=== PATIENT | male | born 1960 | race Caucasian/White ===

== ENCOUNTER 2017-12-17 12:24 | Inpatient (IN) | payer OTHER ==
[~2017-12-17] VITALS: Ht 172.7 cm; Wt 115.2 kg
[~2017-12-17 12:24] MED LIST: ASPIRIN EC81 M1; ATORVASTATIN CA10 M1 PO; FENOFIBRATE160 M1 PO; HUMALOG MI100 UNIT/3 SC; JENTADUETO 2.51 EAC2 PO; LISINOPRIL10 M1 PO
[2017-12-17] MEDS ORDERED: PRAVASTATIN SOD20 M2 PO (12:45)
[2017-12-17] MEDS ORDERED: LOVAZA1 G1 PO (12:46)
[2017-12-17] MEDS ORDERED: FAMOTIDINE20 M1 PO (12:47)
[2017-12-17] MEDS ORDERED: ASPIRIN81 M4 PO (12:47)
[2017-12-17] MEDS ORDERED: HUMULIN R500 UNIT/2 SC (12:48)
--- NOTE | 2017-12-17 14:47 | ED GENERAL ADULT ---
History of Present Illness General Chief Complaint: General Adult Stated Complaint: ABNORMAL LABS Source: patient Exam Limitations: no limitations Vital Signs & Intake/Output Vital Signs & Intake/Output Vital Signs Date Time Temp Pulse Resp B/P B/P Pulse O2 O2 Flow FiO2 Mean Ox Delivery Rate 12/17 1603 97.7 73 18 153/72 100 Room Air 12/17 1538 99 Room Air 12/17 1236 97.9 96 16 142/84 99 Room Air Allergies Coded Allergies: dapagliflozin (From [facility]) (YEAST INFECTION PER PT 12/17/17) sweet potato (DIFF BREATH PER PT 12/17/17) Reconcile Medications Aspirin (Aspirin*) 81 MG TAB.CHEW 1 TAB PO DAILY HEART HEALTH (Reported) Famotidine 20 MG TABLET 1 TAB PO BID GI (Reported) Insulin NPL/Insulin Lispro (Humalog Mix 75-25 Kwikpen) 100 UNIT/ML (75-25) INSULN.PEN 55 UNITS SC TID DIABETES (Reported) Insulin Regular, Human (Humulin R U-500 Kwikpen) 500/ML (3) INSULN.PEN 55 UNITS SC TID DIABETES (Reported) Lisinopril 10 MG TABLET 1 TAB PO DAILY DIRECTED (Reported) [place]-3 Acid Ethyl Esters (Lovaza) 1 GRAM CAPSULE 2 CAP PO BID SUPPLEMENT ( Reported) Pravastatin Sodium 20 MG TABLET 1 TAB PO DAILY CHOLESTEROL (Reported) Triage Note: PT SENT IN BY PCP FOR INCREASED BLOOD SUGAR. PT STATES THAT HE WENT TO DOCTOR TODAY FOR FOLLOW UP FOR HIS LIVER CIRRHOSIS. PT STATES THAT THE LAST 2 NIGHTS THAT HE HAS NO SLEPT WELL. PT BLOOD SUGAR IN TRAIGE IN >500 Triage Nurses Notes Reviewed? yes Onset: Abrupt HPI: 57 yo male with a history of hypertension, hyperlipidemia, cirrhosis, and poorly controlled type 2 diabetes mellitus presents today for hyperglycemia. Patient was previously at his 3 month f/u with his PCP when he was told to come to the ED for elevated sugar level. He states his blood sugar has been running high for a few years now is last A1C was recorded at 13.7 and he uses Humulin R insulin 55 units three times a day. He was taken off pills for diabetes upon diagnosis of cirrhosis. He admits to having 3 eggs, toast, grits, slive of ham, frosted flakes for breakfast. He had a chicken sandwich for dinner and also drank 3 iced teas. He denied any nausea, vomiting, diarrhea, headache, chest pain, abdominal pain, sob, weakness, or cough. Past History Travel History Traveled to [place] past 21 day No Medical History Any Pertinent Medical History? 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 No Review of Systems Review of Systems Constitutional: Reports: no symptoms, see HPI. EENTM: Reports: no symptoms, see HPI. Respiratory: Reports: no symptoms, see HPI. Cardiovascular: Reports: no symptoms, see HPI. GI: Reports: no symptoms, see HPI. Genitourinary: Reports: no symptoms, see HPI. Musculoskeletal: Reports: no symptoms, see HPI. Skin: Reports: no symptoms, see HPI. Neurological/Psychological: Reports: no symptoms, see HPI. Hematologic/Endocrine: Reports: no symptoms, see HPI. Immunologic/Allergic: Reports: no symptoms, see HPI. All Other Systems: Reviewed and Negative Physical Exam Physical Exam General Appearance: well developed/nourished, no apparent distress, alert, awake Head: atraumatic, normal appearance Eyes: Bilateral: normal appearance, PERRL, EOMI. Ears, Nose, Throat: normal pharynx, normal ENT inspection, hearing grossly normal Neck: normal inspection, supple, full range of motion Respiratory: normal breath sounds, chest non-tender, no respiratory distress Cardiovascular: regular rate/rhythm Gastrointestinal: normal bowel sounds, soft, non-tender, no organomegaly Rectal: normal exam, normal rectal tone Back: normal inspection, normal range of motion Extremities: normal inspection, normal capillary refill, normal range of motion, no edema Neurologic/Psych: no motor/sensory deficits, awake, alert Skin: intact, normal color Core Measures ACS in differential dx? No CVA/TIA Diagnosis: No Sepsis Present: No Sepsis Focused Exam Completed? No Progress Differential Diagnoses I considered the following diagnoses in my evaluation of the patient: DKA, hyperosmolar diabetic coma, dehydration Plan of Care: Orders Procedure Date/time Status Consistent Carbohydrate 2 12/18 B Active LACTIC ACID 12/17 1635 Active Add-on Test (ER Only) 12/17 1600 Active EKG 12/17 1545 Active SERUM OSMOLALITY 12/17 1425 Complete PARTIAL THROMBOPLASTIN TIME 12/17 1359 Complete PROTHROMBIN TIME 12/17 1359 Complete EKG 12/17 1357 Active AMMONIA LEVEL 12/17 1352 Complete MIXED VENOUS BLOOD GAS (GEN) 12/17 1335 Active URINALYSIS 12/17 1335 Active LACTIC ACID 12/17 1335 Complete COMPREHENSIVE METABOLIC PANEL 12/17 1335 Complete CBC WITHOUT DIFFERENTIAL 12/17 1335 Complete ACETONE 12/17 1335 Complete Laboratory Tests 12/17/17 1545: Troponin I Cancelled 12/17/17 1425: Ammonia 23 12/17/17 1425: Bicarbonate Actual 24, Mixed VBG pH 7.40, Mixed VBG pCO2 40 L, Mixed VBG O2 Saturation 36, Carboxyhemoglobin 0.8 L, O2 Concentration % 21, O2 Delivery Method RA, Anion Gap 10, Estimated GFR 48 L, BUN/Creatinine Ratio 25.3 H, Glucose 681 *H, Serum Osmolality 328 H, Lactic Acid 1.5, Calcium 9.4, Total Bilirubin 0.4, AST 83 H, ALT 128 H, Alkaline Phosphatase 161 H, Total Protein 7.1, Albumin 3.4 L, Globulin 3.7, Albumin/Globulin Ratio 0.9 L, PT 11.3, INR 1.04, APTT 28, CBC w Diff NO MAN DIFF REQ, RBC 4.83, MCV 86.4, MCH 29.2, MCHC 33.8, RDW 13.4, MPV 9.4, Gran % 57.2, Lymphocytes % 34.2, Monocytes % 6.7, Eosinophils % 1.5, Basophils % 0.4, Absolute Granulocytes 3.6, Absolute Lymphocytes 2.1, Absolute Monocytes 0.4, Absolute Eosinophils 0.1, Absolute Basophils 0, Phlebotomy Draw Site L AC, Acetone Level NEGATIVE Initial ED EKG: none Departure Departure Disposition: STILL A PATIENT Condition: Stable Clinical Impression Primary Impression: Hyperglycemia Secondary Impressions: Acute kidney injury Referrals: Darvin Galloway MD (PCP/Family) Departure Forms: Customer Survey General Discharge Information Admission Note Spoke With: Damon Cee MD Documentation of Exam: Documentation of any treatments & extenuating circumstances including Concerns Regarding Discharge (functional status, medication knowledge or non-compliance, living conditions, etc.) that warrant an admission rather than observation: Endocrine consultation. IV fluids. Insulin. Repeat labs. Not medically safe for discharge. Critical Care Note Critical Care Note Critical Care Time: 30-74 min (35)
[2017-12-17 14:55] LABS: ABSOLUTE BASOPHIL COUNT 0 /CUMM (0.0-0.2); ABSOLUTE EOSINOPHIL COUNT 0.1 /CUMM (0.0-0.7); ABSOLUTE GRANULOCYTE CT 3.6 /CUMM (1.4-6.5); ABSOLUTE LYMPH COUNT 2.1 /CUMM (1.2-3.4); ABSOLUTE MONOCYTE COUNT 0.4 /CUMM (0.10-0.60); BASOPHIL % 0.4 % (0.0-2.0); EOSINOPHIL % 1.5 % (0-5); GRANULOCYTE % 57.2 % (42.2-75.2); HEMATOCRIT 41.8 % (42-52); MEAN CORPUSCULAR HGB 29.2 PG (27.0-31.0); MEAN CORPUSCULAR HGB CONC 33.8 G/DL (33.0-37.0); MEAN CORPUSCULAR VOLUME 86.4 FL (80.0-94.0); MEAN PLATELET VOLUME 9.4 FL (7.4-10.4); PLATELET COUNT 143 /CUMM (130-400); RBC DISTRIBUTION WIDTH 13.4 % (11.5-14.5); RED BLOOD CELL CT 4.83 /CUMM (4.70-6.10); WHITE BLOOD CELL COUNT 6.3 /CUMM (4.8-10.8)
[2017-12-17 15:05] LABS: PT 11.3 SEC (9.4-12.5); PTT 28 SEC (25-37)
--- NOTE | 2017-12-17 19:54 | History & Physical ---
Jose Luis Zaragoza 12/17/171953: General Information and HPI MD Statement: I have seen and personally examined LILIYA CANO and documented this H&P. The patient is a 57 year old M who presented with a patient stated chief complaint of elevated blood sugars. History of Present Illness: 57 year old male with PMH Diabetes, hypertension, hyperlipidemia and CARY who presented to ED with an elevated glucose of 681. Patient was at his usual follow up with his transplant physician at [place] for his diagnosed CARY. Upon arriving home, patient was called by the office that he had a blood sugar of 521 and was told to come to the ED. Patient states that he takes Humulin R insulin 55 units TID at 12PM, 7PM and 4AM. He last took his insulin at 12PM yesterday and was unable to take it thereafter due to a change in his work schedule. 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 Patient was therefore unable to fully follow his regimen. After his work day, he had consumed a large meal prior to visiting his transplant physician and prior to coming to the ED. He follows regularaly with an [facility] who he last saw last month. Last recorded A1C was 13.7. Patient has had a hypoglycemic event last year but recently his sugars have been running higher at the levels of 280s. He attributes this to his new work schedule and stress at home of taking care of his father who has dementia. ROS: + Constiopation. Negative for abdominal pain, diarrhea, nausea, vomiting, urinary symptoms, fevers, chills, chest pain or sob. Smoking: Denies Alcohol: Denies Family hx: non-contributory Last Discharge date 12/12/15: for dark urine/abdominal pain. Elevated transaminases at that time. Found tohave thrombocytopenia where he received 2 units of platelets for a count of 10,000 and started on dexamethasone. No acute intracranial hemorrhage or mass effect. -His extensive lab works were positive for anti-smooth muscle antibody, CMV IgG, IgM, viral load. Hepatits and HIV were negative at that time. PCP: Darvin Perez Allergies/Medications Allergies: Coded Allergies: dapagliflozin (From [facility]) (YEAST INFECTION PER PT 12/17/17) sweet potato (DIFF BREATH PER PT 12/17/17) Home Med list Aspirin (Aspirin*) 81 MG TAB.CHEW 1 TAB PO DAILY HEART HEALTH (Reported) Famotidine 20 MG TABLET 1 TAB PO BID GI (Reported) Insulin NPL/Insulin Lispro (Humalog Mix 75-25 Kwikpen) 100 UNIT/ML (75-25) INSULN.PEN 55 UNITS SC TID DIABETES (Reported) Insulin Regular, Human (Humulin R U-500 Kwikpen) 500/ML (3) INSULN.PEN 55 UNITS SC TID DIABETES (Reported) Lisinopril 10 MG TABLET 1 TAB PO DAILY DIRECTED (Reported) [place]-3 Acid Ethyl Esters (Lovaza) 1 GRAM CAPSULE 2 CAP PO BID SUPPLEMENT ( Reported) Pravastatin Sodium 20 MG TABLET 1 TAB PO DAILY CHOLESTEROL (Reported) Past History Travel History Traveled to [place] past 21 day No Medical History Neurological: NONE EENT: NONE Cardiovascular: hypertension, hyperlipidemia Respiratory: NONE Gastrointestinal: NONE Hepatic: cirrhosis Renal: NONE Musculoskeletal: NONE Psychiatric: NONE Endocrine: diabetes Blood Disorders: NONE Cancer(s): NONE 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 Exam & Diagnostic Data Last 24 Hrs of Vital Signs/I&O Vital Signs Date Time Temp Pulse Resp B/P B/P Pulse O2 O2 Flow FiO2 Mean Ox Delivery Rate 12/17 2258 98.6 75 18 128/80 95 Room Air 12/17 2000 98.1 76 18 145/70 97 Room Air 12/17 1802 79 18 148/76 98 Room Air 12/17 1603 97.7 73 18 153/72 100 Room Air 12/17 1538 99 Room Air 12/17 1236 97.9 96 16 142/84 99 Room Air Intake & Output 12/18 0800 12/18 0000 12/17 1600 Intake Total 0 1000 Output Total 0 Balance 0 1000 Intake, IV 1000 Intake, Oral 0 Output, Urine 0 Patient 254 lb 254 lb Weight Weight Reported by Patient Reported by Patient Measurement Method Physical Exam General Appearance Alert, Oriented X3, Cooperative, No Acute Distress Skin No Rashes, No Breakdown Skin Temp/Moisture Exam: Warm/Dry HEENT Mucous Membr. moist/pink Neck Supple Cardiovascular Normal S1, Normal S2 Lungs Clear to Auscultation, Normal Air Movement Abdomen Normal Bowel Sounds, Soft, No Tenderness Neurological Normal Speech, Strength at 5/5 X4 Ext, Normal Tone Extremities No Cyanosis, No Edema Last 24 Hrs of Labs/Anthony: Laboratory Tests 12/17/17 2104: Urine Color YEL, Urine Clarity CLEAR, Urine pH 6.0, Ur Specific [place] 1.010, Urine Protein TRACE H, Urine Ketones NEG, Urine Nitrite NEG, Urine Bilirubin NEG, Urine Urobilinogen 0.2, Ur Leukocyte Esterase NEG, Ur Microscopic SEDIMENT EXAMINED, Urine RBC 1-3, Urine WBC RARE, Ur Epithelial Cells RARE, Urine Mucus RARE, Urine Hemoglobin SMALL H, Urine Glucose >=1000 H 12/17/17 1635: Lactic Acid Cancelled 12/17/17 1545: Troponin I Cancelled 12/17/17 1425: Ammonia 23 12/17/17 1425: Bicarbonate Actual 24, Mixed VBG pH 7.40, Mixed VBG pCO2 40 L, Mixed VBG O2 Saturation 36, Carboxyhemoglobin 0.8 L, O2 Concentration % 21, O2 Delivery Method RA, Anion Gap 10, Estimated GFR 48 L, BUN/Creatinine Ratio 25.3 H, Glucose 681 *H, Serum Osmolality 328 H, Lactic Acid 1.5, Calcium 9.4, Total Bilirubin 0.4, AST 83 H, ALT 128 H, Alkaline Phosphatase 161 H, Total Protein 7.1, Albumin 3.4 L, Globulin 3.7, Albumin/Globulin Ratio 0.9 L, PT 11.3, INR 1.04, APTT 28, CBC w Diff NO MAN DIFF REQ, RBC 4.83, MCV 86.4, MCH 29.2, MCHC 33.8, RDW 13.4, MPV 9.4, Gran % 57.2, Lymphocytes % 34.2, Monocytes % 6.7, Eosinophils % 1.5, Basophils % 0.4, Absolute Granulocytes 3.6, Absolute Lymphocytes 2.1, Absolute Monocytes 0.4, Absolute Eosinophils 0.1, Absolute Basophils 0, Phlebotomy Draw Site L AC, Acetone Level NEGATIVE Assessment/Plan Assessment: 57 year old male with PMH Diabetes, hypertension, hyperlipidemia and CARY who presented to ED with an elevated glucose of 681. Was sent by transplant physician after follow up visit demonstarted elevated blood sugars. Last recorded A1C was 13.7. Patient uses Humulin R insulin 55 units TID. Dicontinued oral regimen due to diagnsois of cirrhosis on previous admission 2015 where patient had lab work posuitive for anti-smooth muscle antibodiy, CMV, IgM, Viral Load. EMERGENCY DEPARTMENT: 10 units Insulin Novolin x1; 2 Bolus NS Vitals: 97.9, 96, 16, 142/84, 99%RA Labs: 6.3, 14.1 hgb, 41.8 hct, 86.4 MC, 143 Plt Chemistry: Na 129, K 5.0, Cl 93, CO2 26, BUN 38/ Cr 1.5 GLUCOSE: 681, Acetone negative Lactic acid 1.5 AST 83, ALT 128, ALK Phos 161; Albumin 3.4 (L), Total protein 7.1, Ammonia 23 EKG: SR 80 QTC 447, non specific T wave changes unchanged from previous EKG PROBLEM LIST: 1. Hyperglycemia normal gap secondary to history of Diabetes 2. History of CARY Transaminitis 3. H/O HTN/HLD PLAN: * Continue home regimen of Insulin NovoLin 55 Units at 4AM, 12PM, 7PM * IV fluids at 150/hr with added K * Nutrition consult in AM * Continue home medications: Aspirin 81, Provastatin 20, FAmotidine 20, Fish oil Code Status: Full Code DVT PPx: Heparin SC Diet: CC1 As Ranked By This Provider Problem List: 1. Transaminitis 2. Hyperglycemia 3. Acute kidney injury Core Measures/Misc (12/09) Acute Coronary Syndrome ACS Diagnosis: No Congestive Heart Failure Congestive Heart Failure Diagnosis No Cerebrovascular Accident CVA/TIA Diagnosis: No VTE (View Protocol) VTE Risk Factors Age>40 No Mechanical VTE Prophylaxis d/t N/A MechProphylax Ordered No VTE Pharm Prophylaxis d/t NA PharmProphylax ordered Sepsis (View protocol) Sepsis Present: No If YES complete Sepsis Event Note If YES complete Sepsis Event Note Yonatan Bo MD 12/17/17 2016: Core Measures/Misc (12/09) Sepsis (View protocol) If YES complete Sepsis Event Note If YES complete Sepsis Event Note Resident Review Statement Resident Statement: examined this patient, discussed with grad intern, agreed with grad intern, reviewed EMR data (avail), amended to note Other Findings: Patient is a 57-year-old male with past medical history of hypertension, hyperlipidemia, uncontrolled diabetes, with previous admission in 2016 found to have positive for anti-smooth muscle antibody, CMV IgG, IgM, 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 Patient reports that he went to this liver transplant physician for his routine 3 month follow up. At the visit he had blood drawn and after evaluation was sent home. Reports that 30 minutes after arriving he was called and asked to come into the ED as his serum blood sugar level was 521. Patient states prior to seeing his doctor he had eaten breakfast. Reports he came to the ED and prior to coming he ate again. In the ED his fingerstick was >500. Serum glucose level was 681. Patient states he has not been taking his insulin regularly due to work related shift changes. Patient reports he is currently on Humilin R 55 units TID (takes it at noon, 7PM and 4AM). Is not currently on any other insulin regimen and his oral hypolgycemic agents were stopped after his diagnosis of cirrhosis. Patient reports that he followed up with his body shop supervisor 1 month prior at which point his hemoglobin A1c was 13.7 and his insulin was adjusted to its current regimen. Patient reports his blood sugar level has been running high for the past 2 years. Patient states he has not been eating well due to his shift change at work. Patient reports last hypoglyemic episodes with BG to the 40s 1 year prior. No recent episodes. Denies nausea, vomitting, chest pain, palpitations, SOB, fever/chills, dysuria, hematuria. Denies polyuria. Reports that he does a drink a lot of water however states this was because he was told to by his physician. Patient denies any numbness or tingling. Follow up with his pcp for diabetic foot exam which was reported as normal. Denies any visual changes, has not seen an filler blender yet. Reports occasional constipation for which he takes prune juice as needed. 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 Takes care of his father who has dementia Medications: aspirin, famotidine, humilin R, lisinopril, pravastatin, omega On admission: Vitals: MAXIMUM TEMPERATURE 98.1, heart rate 70s to 90s, respiration rate 18, blood pressure 145/70, saturating at 97-100% on room air Physical exam findings as exam Labs: Significant for sodium of 129, potassium 5.0, chloride 93, bicarbonate and anion gap within normal limits, BUN 38, creatinine 1.5 (up from baseline of 1.1) , serum glucose of 681, serum osmolality 328 ammonia 23, acetone level negative, venous blood gas within normal limits with pH of 7.40 Patient in the ED received 1 L normal saline bolus 2, insulin 10 units with improvement in his blood sugar level which came down to 400 Patient is a 57 y/o obese male with PMH significant for uncontrolled DM presenting with hyperglycemia likely secondary to poor compliance and poor diet with no significant physical activity due to multiple stressors including change of shift at work and 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 1. Uncontrolled DM 2/2 Medication noncompliance and poor diet 2. CLARA 3. Chronic conditions: HTN, HLD, DM Plan: Admit to gen med Continue IV fluid hydration Monitor blood sugars q4h Restart humilin 55 units TID Hold lisinopril is setting of CLARA Resume home meds: aspirin, famotidine, pravastatin, omega 3 Nutrition consult placed for diabetic diet teaching Diet: consistent carbohydrate 1 Code: full code DVT PPx: ALPS, Heparin SQ Coleman ULLOA,Damon 12/18/17 0353: Core Measures/Misc (12/09) Sepsis (View protocol) If YES complete Sepsis Event Note If YES complete Sepsis Event Note Attending MD Review Statement Attending Statement Attending MD Statement: examined this patient, discuss w/resident/PA/SHOP ROUTER, agreed w/resident/PA/SHOP ROUTER Attending Assessment/Plan: Patient is seen and examined independently by me. Care plan discussed with infertility medical assistant and/or resident. I agree with the physical exam findings and plan of care as outlined above with the following changes and additions. 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 Patient has poor glycemic control and check fingerstick only once a month with reading in 280s. Last HbA1C 13.7 about a month ago. He had hypoglycemic episodes in the past and is followed by an body shop supervisor now placed him on Humalog 55 units TID. He last used his insulin at lunch yesterday due to change of his shift work in last 2 days. He went for a liver transplant evaluation follow up visit and blood work showed glucose 521. He has some fatigue and weakness but contributed to lack of sleep. He denies polyuria, polydipsia, fever, chills, recent infection, chest pain or SOB. In the ED, glucose 681. AG 10. Acetone negative. K 5.0. Na 129 (corrected Na 138 ). BUN/Cr 38/1.5 (34/1.1 on 12/12/15). Platelet 143. EKG shows NSR at 86 with LVH and no significant ST-T changes when compares with previous EKG. Patient got regular insulin 10 units IV and NS 2 L in the ED. Patient is admitted to inpatient to [facility] for hyperosmolar hyperglycemia. IV hydration. Continue home dose insulin. Check fingerstick. Monitor chemistry. Nutrition consult for diabetic teaching. Signed: Damon Cee MD FACP
[2017-12-17 22:58] VITALS: BP 128/80
[2017-12-18 06:30] VITALS: BP 134/76
--- NOTE | 2017-12-18 07:22 | PN- Housestaff ---
Jak Wolf 12/18/17 0722: Subjective Follow-up For: Hyperglycemia Subjective: Patient seen and examined at bedside. He is doing well and NAD. He denies diaphoresis, tremors, palpitations. Review of Systems Constitutional: Denies: see HPI. Objective Last 24 Hrs of Vital Signs/I&O Vital Signs Date Time Temp Pulse Resp B/P B/P Pulse O2 O2 Flow FiO2 Mean Ox Delivery Rate 12/18 1521 98.2 70 20 140/80 96 12/18 0800 Room Air Intake & Output 12/19 0800 12/19 0000 12/18 1600 Intake Total 2850 Output Total Balance 2850 Intake, IV 1600 Intake, Oral 1250 Number 1 Bowel Movements Physical Exam General Appearance: Alert, Oriented X3, Cooperative, No Acute Distress, Obese Skin: No Rashes Skin Temp/Moisture Exam: Warm/Dry HEENT: Atraumatic, Mucous Membr. moist/pink Neck: Supple Cardiovascular: Normal S1, Normal S2 Lungs: Clear to Auscultation, Normal Air Movement Abdomen: Normal Bowel Sounds, Soft, No Tenderness Neurological: Normal Speech, Sensation Intact Extremities: No Cyanosis Vascular: Normal Pulses Assessment/Plan Assessment: 57 year old male with PMH Diabetes, hypertension, hyperlipidemia and CARY who presented to ED with an elevated glucose of 681. He reports that he missed 2 days worth of insulin (about 6 doses) and ate a high carb/sugar meal before coming in. He denies any symptoms. It seems like his home regimen keeps him only partially controlled as well according to his home blood sugars in the 200s. #Hyperglycemia #Hx of HTN, HLD, and CARY - Blood Glucose is 207 - Endocrinology recs appreciated - Patient will be D/C'd today and instructed to follow-up with his rate examiner and PCP Problem List: 1. Hyperglycemia Pain Ratin Pain Location: n/a Pain Goal: Remain pain free Pain Plan: None Tomorrow's Labs & Rationales: None Giovanni Houser MD 12/19/17 0647: Attending MD Review Statement Attending Statement Attending MD Statement: examined this patient, discuss w/resident/PA/PLATE WORKER HELPER, agreed w/resident/PA/PLATE WORKER HELPER, discussed with family, reviewed EMR data (avail), discussed with nursing, discussed with case mgmt, amended to note Attending Assessment/Plan: The patient was seen and discussed with house staff. Appreciate endocrinology input. Will discharge patient today on his usual insulin dose. He will have close follow-up with his PCP and rate examiner at outpatient. Importance of compliance with his insulin regimen emphasized. Will forward note from Dr. Goldstein to his PCP and Surveillance Systems Engineer.
--- NOTE | 2017-12-18 13:02 | Cons- Endocrinology ---
General Information and HPI Consulting Request Date of Consult: 12/18/17 Requested By: medical team Reason for Consult: uncontrolled diabetes Source of Information: patient, old records Exam Limitations: no limitations History of Present Illness: This 57-year-old male with a known history of diabetes mellitus type 2 associated with morbid obesity was admitted because of extreme hyperglycemia. Apparently he was at [facility] and his doctor there anamaria some blood work. He was called and told to go to the emergency room. In the emergency room his glucose was 681 and he had evidence of acute kidney injury with a creatinine of 1.5 sodium 129. In speaking with the patient he has had type 2 diabetes for at least 20 years. He has known nonalcoholic fatty liver disease. He also states that this has progressed to cirrhosis. However lately his liver has been doing better. He has gained about 20 pounds of weight over the past 2 years. He is seeing an form carpenter on the outside. He is using U500 insulin 55 units 3 times a day. He does not check his sugars. He has not had an eye exam for some time. He did have a cardiac catheterization was told he had no significant narrowing of his coronary arteries. The patient was being considered for liver transplant but states he has been told that this will be put off since his liver improved. Allergies/Medications Allergies: Coded Allergies: dapagliflozin (From [facility]) (YEAST INFECTION PER PT 12/17/17) sweet potato (DIFF BREATH PER PT 12/17/17) Home Med List: Aspirin (Aspirin*) 81 MG TAB.CHEW 1 TAB PO DAILY HEART HEALTH (Reported) Famotidine 20 MG TABLET 1 TAB PO BID GI (Reported) Insulin NPL/Insulin Lispro (Humalog Mix 75-25 Kwikpen) 100 UNIT/ML (75-25) INSULN.PEN 55 UNITS SC TID DIABETES (Reported) Insulin Regular, Human (Humulin R U-500 Kwikpen) 500/ML (3) INSULN.PEN 55 UNITS SC TID DIABETES (Reported) Lisinopril 10 MG TABLET 1 TAB PO DAILY DIRECTED (Reported) [place]-3 Acid Ethyl Esters (Lovaza) 1 GRAM CAPSULE 2 CAP PO BID SUPPLEMENT ( Reported) Pravastatin Sodium 20 MG TABLET 1 TAB PO DAILY CHOLESTEROL (Reported) Review of Systems Review of Systems Constitutional: Denies: chills, fever. Cardiovascular: Denies: chest pain. Respiratory: Denies: short of breath. Genitourinary: Denies: dysuria. Skin: Reports: no symptoms. Past History Travel History Traveled to [place] past 21 day No Medical History Blood Transfusion Hx: No Neurological: NONE EENT: NONE Cardiovascular: hypertension, hyperlipidemia Respiratory: NONE Gastrointestinal: NONE Hepatic: cirrhosis Renal: NONE Musculoskeletal: NONE Psychiatric: NONE Endocrine: diabetes Blood Disorders: NONE Cancer(s): NONE [employer]/Reproductive: NONE Surgical History Surgical History: cervical spine surgery Family History Relations & Conditions If Any: FATHER Relation not specified for: FH: prostate cancer FHx: hyperlipidemia FHx: hypertension Psychosocial History Smoking Status: Never Smoked Exam & Diagnostic Data Last 24 Hrs of Vital Signs/I&O Vital Signs Date Time Temp Pulse Resp B/P B/P Pulse O2 O2 Flow FiO2 Mean Ox Delivery Rate 12/18 0800 Room Air 12/18 0630 98.8 71 18 134/76 96 Room Air 12/17 2258 98.6 75 18 128/80 95 Room Air 12/17 2000 98.1 76 18 145/70 97 Room Air 12/17 1802 79 18 148/76 98 Room Air 12/17 1603 97.7 73 18 153/72 100 Room Air 12/17 1538 99 Room Air Intake & Output 12/18 1600 12/18 0000 Intake Total 1800 0 Output Total 0 Balance 1800 0 Intake, IV 1200 Intake, Oral 600 0 Output, Urine 0 Patient 254 lb Weight Weight Reported by Patient Measurement Method Vital Signs Date Time Temp Pulse Resp B/P B/P Pulse O2 O2 Flow FiO2 Mean Ox Delivery Rate 12/18 0800 Room Air 12/18 0630 98.8 71 18 134/76 96 Room Air 12/17 2258 98.6 75 18 128/80 95 Room Air 12/18 1999 98.1 76 18 145/70 97 Room Air 12/17 1802 79 18 148/76 98 Room Air 12/17 1603 97.7 73 18 153/72 100 Room Air 12/17 1538 99 Room Air Intake & Output 12/18 1600 12/18 0812/18 0000 Intake Total 1800 0 Output Total 0 Balance 1800 0 Intake, IV 1200 Intake, Oral 600 0 Output, Urine 0 Patient 254 lb Weight Weight Reported by Patient Measurement Method Physical Exam General Appearance: alert, awake, comfortable, obese Head: normal appearance Eyes: Bilateral: normal appearance. Neck: normal inspection Respiratory: normal breath sounds Cardiovascular: regular rate/rhythm Gastrointestinal: normal bowel sounds Extremities: normal inspection Labs/Anthony Results: Laboratory Tests 12/18 12/17 12/17 0632 2104 1635 Chemistry Sodium (137 - 145 mmol/L) 136 L Potassium (3.5 - 5.1 mmol/L) 4.2 Chloride (98 - 107 mmol/L) 106 Carbon Dioxide (22 - 30 mmol/L) 23 Anion Gap (5 - 16) 7 BUN (9 - 20 mg/dL) 27 H Creatinine (0.7 - 1.2 mg/dL) 1.2 Estimated GFR (>60 ml/min) > 60 BUN/Creatinine Ratio (7 - 25 %) 22.5 Lactic Acid Cancelled Urines Urine Color (YEL,AMB,STR) YEL Urine Clarity (CLEAR) CLEAR Urine pH (5.0 - 8.0) 6.0 Ur Specific [place] (1.001 - 1.035) 1.010 Urine Protein (NEG,<30 MG/DL) TRACE H Urine Ketones (NEG) NEG Urine Nitrite (NEG) NEG Urine Bilirubin (NEG) NEG Urine Urobilinogen (0.1 - 1.0 EU/dl) 0.2 Ur Leukocyte Esterase (NEG) NEG Ur Microscopic SEDIMENT EXAMINED Urine RBC (0 - 5 /HPF) 1-3 Urine WBC (0 - 2 /HPF) RARE Ur Epithelial Cells (NONE,FEW) RARE Urine Mucus (FEW,NONE) RARE Urine Hemoglobin (NEG) SMALL H Urine Glucose (N MG/DL) >=1000 H 12/17 12/17 12/17 1545 1425 1425 Blood Gas Bicarbonate Actual (22 - 26 MEQ/L) 24 Mixed VBG pH (7.31 - 7.41 PH) 7.40 Mixed VBG pCO2 (41 - 51 TORR) 40 L Mixed VBG O2 Saturation (35 - 45 TORR) 36 Carboxyhemoglobin (1.5 - 5.0 %) 0.8 L O2 Concentration % 21 O2 Delivery Method RA Chemistry Sodium (137 - 145 mmol/L) 129 L Potassium (3.5 - 5.1 mmol/L) 5.0 Chloride (98 - 107 mmol/L) 93 L Carbon Dioxide (22 - 30 mmol/L) 26 Anion Gap (5 - 16) 10 BUN (9 - 20 mg/dL) 38 H Creatinine (0.7 - 1.2 mg/dL) 1.5 H Estimated GFR (>60 ml/min) 48 L BUN/Creatinine Ratio (7 - 25 %) 25.3 H Glucose (65 - 99 mg/dL) 681 *H Serum Osmolality (285 - 295 MOSM/KG) 328 H Lactic Acid (0.7 - 2.1 mmol/L) 1.5 Calcium (8.4 - 10.2 mg/dL) 9.4 Total Bilirubin (0.2 - 1.3 mg/dL) 0.4 AST (17 - 59 U/L) 83 H ALT (21 - 72 U/L) 128 H Alkaline Phosphatase (< 127 U/L) 161 H Ammonia (9 - 30 umol/L) 23 Troponin I Cancelled Total Protein (6.3 - 8.2 g/dL) 7.1 Albumin (3.5 - 5.0 g/dL) 3.4 L Globulin (1.9 - 4.2 gm/dL) 3.7 Albumin/Globulin Ratio (1.1 - 2.2 %) 0.9 L Coagulation PT (9.4 - 12.5 SEC) 11.3 INR (0.90 - 1.17) 1.04 APTT (25 - 37 SEC) 28 Hematology CBC w Diff NO MAN DIFF REQ WBC (4.8 - 10.8 /CUMM) 6.3 RBC (4.70 - 6.10 /CUMM) 4.83 Hgb (14.0 - 18.0 G/DL) 14.1 Hct (42 - 52 %) 41.8 L MCV (80.0 - 94.0 FL) 86.4 MCH (27.0 - 31.0 PG) 29.2 MCHC (33.0 - 37.0 G/DL) 33.8 RDW (11.5 - 14.5 %) 13.4 Plt Count (130 - 400 /CUMM) 143 MPV (7.4 - 10.4 FL) 9.4 Gran % (42.2 - 75.2 %) 57.2 Lymphocytes % (20.5 - 51.1 %) 34.2 Monocytes % (1.7 - 9.3 %) 6.7 Eosinophils % (0 - 5 %) 1.5 Basophils % (0.0 - 2.0 %) 0.4 Absolute Granulocytes (1.4 - 6.5 /CUMM) 3.6 Absolute Lymphocytes (1.2 - 3.4 /CUMM) 2.1 Absolute Monocytes (0.10 - 0.60 /CUMM) 0.4 Absolute Eosinophils (0.0 - 0.7 /CUMM) 0.1 Absolute Basophils (0.0 - 0.2 /CUMM) 0 Miscellaneous Phlebotomy Draw Site L AC Toxicology Acetone Level (NEGATIVE) NEGATIVE Assessment/Plan Assessment/Plan This patient has a history of type 2 diabetes associated with morbid obesity. His diabetes has been complicated by nonalcoholic fatty liver disease which has progressed to cirrhosis. The patient has been gaining weight instead of losing weight. In addition his sugar has been out of control. The patient had acute kidney injury when he first came into the hospital probably due to dehydration. His creatinine is improved and down to normal today. He is being managed by his form carpenter in the past with 55 units of U500 Humulin regular insulin 3 times a day. He unfortunately does not check his sugars at home. Patient was tried on Farxiga which is an SGL T-2 inhibitor at one time in the past but states he got a yeast infection and this medication had to be stopped. The patient sugar is down into the 200s now. He needs to be more careful on his diet and to check his sugars at home. He would also benefit as an outpatient from a continuous blood glucose monitor which would help him take better care of himself. The patient has gained weight on insulin and he may want to try other medications in combination with the insulin including introduction of GLP-1 analog since he has no history of pancreatitis in the past. In addition if his sugar is in better control he could be retried on an SGLT2 drug such as Jardiance. The patient should not be receiving 50 units of U100 insulin 3 times a day which is what is ordered for him presently. On the outside as mentioned above he was using U500 insulin that acts much differently. If the patient is going home he could return to the 55 units of U500 insulin 3 times a day and see his usual form carpenter as an outpatient. If he is to remain in the hospital we would place him on a combination of Levemir and NovoLog which are the insulins we use in the hospital. His dose of Levemir would be 30 units twice a day and NovoLog sliding scale before meals would start at 80-150 give 10 units NovoLog, 151-200 give 12 units NovoLog, 201- 250 give 14 units NovoLog, 251-300 give 16 units NovoLog, 301-350 give 18 units NovoLog, 351-400 give 20 units NovoLog. Consult Acknowledgment - Thank you for your consult request.
--- NOTE | 2017-12-18 14:56 | Patient Discharge Instructions ---
Discharge Instructions General Discharge Information Special Instructions: Please follow up with PCP in 1 week. Please follow up with your endcrinologist within one week. Continue your current regimen. Acute Coronary Syndrome Inclusion Criteria At DC or during hospital stay patient has or had the following: ACS DIAGNOSIS No Discharge Core Measures Meds if any: Prescribed or Continued at Discharge Meds if any: NOT Prescribed or Continued at Discharge Congestive Heart Failure Inclusion Criteria At DC or during hospital stay patient has or had the following: CHF DIAGNOSIS No Discharge Core Measures Meds if any: Prescribed or Continued at Discharge Meds if any: NOT Prescribed or Continued at Discharge Cerebrovascular accident Inclusion Criteria At DC or during hospital stay patient has or had the following: CVA/TIA Diagnosis No Discharge Core Measures Meds if any: Prescribed or Continued at Discharge Meds if any: NOT Prescribed or Continued at Discharge Venous thromboembolism Inclusion Criteria VTE Diagnosis No VTE Type NONE VTE Confirmed by (Test) NONE Discharge Core Measures - Per Current guidelines, there needs to be overlap - treatment for the first 5 days of Warfarin therapy. - If discharged on Warfarin prior to 5 days of - overlap therapy, the patient will need to be - assessed for post discharge needs including - *Post discharge parental anticoagulation - *Warfarin and/or parental anticoagulation education - *Follow up date to check INR post discharge At least 5 days overlap therapy as Inpatient No Meds if any: Prescribed or Continued at Discharge Note: Overlap Therapy is Warfarin and Anticoagulant Meds if any: NOT Prescribed or Continued at Discharge
[2017-12-18 15:21] VITALS: BP 140/80
--- NOTE | 2017-12-20 06:16 | Discharge Summary ---
Visit Information Visit Dates Admission Date: 12/17/17 Discharge Date: 12/18/17 Hospital Course Course Attending Physician: Giovanni Houser MD Primary Care Physician: Darvin Galloway MD Allergies: Coded Allergies: dapagliflozin (From [facility]) (YEAST INFECTION PER PT 12/17/17) sweet potato (DIFF BREATH PER PT 12/17/17) Discharge Instructions Medications at Discharge Discharge Medications: Continue taking these medications: Lisinopril (Lisinopril) 10 MG TABLET 1 Tablet ORAL DAILY Qty = 30 Comments: not given in hospital Pravastatin Sodium (Pravastatin Sodium) 20 MG TABLET 1 Tablet ORAL DAILY Qty = 90 Comments: Last Taken: 12/18/17 Time: 7:45 am [place]-3 Acid Ethyl Esters (Lovaza) 1 GRAM CAPSULE 2 Capsule ORAL TWICE DAILY Qty = 360 Comments: Last Taken: 12/18/17 Time: 7:45 am Famotidine (Famotidine) 20 MG TABLET 1 Tablet ORAL TWICE DAILY Qty = 60 Comments: Last Taken: 12/18/17 Time: 7:45 am Aspirin (Aspirin*) 81 MG TAB.CHEW 1 Tablet ORAL DAILY Comments: Last Taken: 12/18/17 Time: 7:43 am Insulin Regular, Human (Humulin R U-500 Kwikpen) 500/ML (3) INSULN.PEN 55 Units SC THREE TIMES DAILY Qty = 6 Comments: Last Taken: 12/18/17 Time: 1:30 pm
== END 2017-12-18 16:20 | DRG 638 ==
LOC: ERH 12:24 → 2NA 19:49 → ERHI 19:49 → ENRESERV 20:17 → ENTRNSPT 20:58 → EDTRNSPTSTS 21:18 → EDTRNSPT 21:33 → 2NA 21:42 → CMPTRNSPT 21:56 → 2NA 12-18 07:41
PROVIDERS: Physician Assistant Medical
DX: E11.65 Type 2 diabetes mellitus with hyperglycemia (principal); N17.9 Acute kidney failure, unspecified; I10 Essential (primary) hypertension; E78.5 Hyperlipidemia, unspecified; K75.81 Nonalcoholic steatohepatitis (NASH); Z79.4 Long term (current) use of insulin; Z98.1 Arthrodesis status; R74.0 Nonspecific elevation of levels of transaminase and lactic acid dehydrogenase [LDH]; K74.69 Other cirrhosis of liver; Z91.128 Patient's intentional underdosing of medication regimen for other reason; Z91.11 Patient's noncompliance with dietary regimen; E66.01 Morbid (severe) obesity due to excess calories; Z68.38 Body mass index [BMI] 38.0-38.9, adult; E86.0 Dehydration
CPT/HCPCS: 2NAP; 36592; 81001; 82436; 93005; 93010; J1644; J1815; J3490